=== PATIENT | male | born 1955 | race Caucasian/White ===

== ENCOUNTER 2020-06-07 22:23 | Inpatient (IN) | payer OTHER, MEDICARE ==
[~2020-06-07] VITALS: Ht 182.9 cm; Wt 113.5 kg
[2020-06-07] MEDS ORDERED: OXYMETAZOLINE 0.05% NASAL SPRAY 30ML BOTTLE. NS ONE (23:30)
--- NOTE | 2020-06-07 23:35 | PHYS DOC ---
Past Medical History Past Medical History: Hypertension Past Surgical History: Tonsillectomy Smoking Status: Never Smoker Alcohol Use: Rarely Drug Use: None General Adult EDM: Chief Complaint: NOSEBLEED HPI: HPI: Patient is a 64-year-old male presenting with nosebleed. Patient has been having persistent episodic nosebleeds for the last few days accompanied by episodes of hypertension. Patient denies of blood thinners. Reports was re cently seen up at [facility] for similar and was noted to have elevated blood pressure. Patient was started on blood pressure medication which he reports he has been compliant with. Review of Systems: Review of Systems: Constitutional: Denies fever or chills Eyes: Denies redness or eye pain HENT: Endorses epistasis, denies trauma Respiratory: Denies cough or shortness of breath Cardiovascular: Denies chest pain or palpitations GI: Denies abdominal pain, nausea, or vomiting : Denies dysuria or hematuria Musculoskeletal: Denies back pain or joint pain Integument: Denies rash or skin lesions Neurologic: Denies headache, focal weakness or sensory changes Complete systems were reviewed and found to be within normal limits, except as documented in this note. Heart Score: HEART Score for Chest Pain: HEART Score for Chest Pain Response (Comments) Value History Slighlty/Non-Suspicious 0 ECG Nonspecific Repolarizatio 1 Age > 65 2 Risk Factors 1 or 2 Risk Factors 1 Troponin >1-<3x Normal Limit 1 Total 5 Risk Factors: Risk Factors: DM, Current or recent (<one month) smoker, HTN, HLP, family history of CAD, obesity. Risk Scores: Score 0 - 3: 2.5% MACE over next 6 weeks - Discharge Home Score 4 - 6: 20.3% MACE over next 6 weeks - Admit for Clinical Observation Score 7 - 10: 72.7% MACE over next 6 weeks - Early Invasive Strategies Current Medications: Current Medications Medications (Trade) Dose Ordered Sig/Peyman Start Time Stop Time Status Last Admin Dose Admin Oxymetazoline HCl (Afrin) 2 spray 1X ONCE 06/07/20 23:30 06/07/20 23:31 DC Sodium Chloride 1,000 ml @ 1,000 mls/hr 1X ONCE 06/07/20 23:45 06/08/20 00:44 Allergies: Allergies: Allergies Coded Allergies Type Severity Reaction Last Updated Verified No Known Drug Allergies 06/07/20 No Physical Exam: PE: Constitutional: Well developed, well nourished, in moderate distress, non-toxic appearance HENT: Normocephalic, atraumatic, nares gross bloody discharge R>L, Eyes: PERRL, EOMI, conjunctiva normal, no discharge Neck: Normal range of motion, no tenderness, supple Lungs & Thorax: Bilateral breath sounds clear to auscultation, no wheezing Abdomen: Soft, no tenderness, umbilicus hernia present Skin: Warm, dry, no erythema, no rash Back: No tenderness, no CVA tenderness Extremities: No tenderness, ROM intact, no edema Neurologic: Alert and oriented X 3, normal motor function, normal sensory function, no focal deficits noted Psychologic: Affect normal, judgment normal Current Patient Data: Vital Signs: Vital Signs Date Time Temp Pulse Resp B/P (MAP) Pulse Ox O2 Delivery O2 Flow Rate FiO2 06/07/20 22:30 97.7 86 22 192/122 (145) 97 Room Air 97.7 EKG: EK06/07/2020 at 23:56 hrs. heart rate 137 bpm, atrial fibrillation with rapid ventricular response, QRS 92 ms, QT/QTc 320/485 ms 06/08/2020 at 00:47 hrs. Heart rate 70 bpm, atrial fibrillation, QRS 100 ms, QT/QTc 440/478 ms Course & Med Decision Making: Course & Med Decision Making Pertinent Lab studies reviewed. (See chart for details) Patient is a 64-year-old male presenting with persistent epistaxis. On arrival to the ED patient passed large dark blood clots from his nostrils where he briefly lost consciousness possibly due to vasovagal response. Nasal clamp and Afrin utilized with interval resolution of epistaxis. Patient has been intermittently hypertensive. Labetalol provided. Patient subsequently noted to have abnormal telemetry monitoring concerning for possible atrial fibrillation. EKG confirmed A. fib RVR. Labs obtained and posted to chart. Cardizem bolus provided with subsequent decrease in heart rate down into the 40s. Patient became diaphoretic at this time. Cardizem drip held for period of time until subsequent improvement of heart rate. Cardizem drip was eventually started. Laboratory data notes patient with repeat troponin slightly elevated. Patient requiring admission for further evaluation and treatment. Discussed with Dr. Curtis (hospitalist) who is in agreement with admission. Discussed findings and plan with patient, who acknowledges understanding and agreement. Dragon Disclaimer: Dragon Disclaimer: This electronic medical record was generated, in whole or in part, using a voice recognition dictation system. Departure Departure Impression: Primary Impression: Atrial fibrillation with rapid ventricular response Additional Impressions: Epistaxis Hypertension Qualified Codes: I10 - Essential (primary) hypertension Syncope Qualified Codes: R55 - Syncope and collapse Disposition: ADMITTED INPATIENT Condition: STABLE Referrals: ADWOA POLANCO MD (PCP) Justicifation of Admission Dx: Justifications for Admission: Justification of Admission Dx: Yes Comments: Afib RVR, Epistaxis, Hypertension, Syncope Critical Care Time Critical care time was 30 minutes which includes time at bedside, spent in discussion of patient's care with specialists and/or family members, with interpretation of laboratory and/or radiological studies and is exclusive of procedures. AMANDA JEAN DO Jun 07, 2020 23:35
[2020-06-07 23:42] LABS: BASO # 0.1 x10^3/uL (0.0-0.2); BASO % 1 % (0-3); EOS # 0.1 x10^3/uL (0.0-0.7); EOS % 1 % (0-3); HEMATOCRIT 30.4 % (39.0-53.0); HEMOGLOBIN 10.4 g/dL (13.0-17.5); LYMPH # 2.9 x10^3/uL (1.0-4.8); LYMPH % 30 % (24-48); MEAN CORPUSCULAR HEMOGLOBIN 33 pg (25-35); MEAN CORPUSCULAR HGB CONC 34 g/dL (31-37); MEAN CORPUSCULAR VOLUME 98 fL (79-100); MONO # 1.2 x10^3/uL (0.0-1.1); MONO % 12 % (0-9); NEUT # 5.5 x10^3/uL (1.8-7.7); NEUT % 55 % (31-73); PLATELET COUNT 252 x10^3/uL (140-400); WHITE BLOOD COUNT 9.9 x10^3/uL (4.0-11.0)
[2020-06-07] MEDS ORDERED: LABETALOL 20 MG/4 ML DISP.SYRIN. IVP ONE (23:45)
[2020-06-07] MEDS ORDERED: IV NORMAL SALINE 1000ML BAG 1,000 ML IV ONE (23:45)
[2020-06-07 23:53] LABS: PROTHROMBIN TIME PATIENT 14.5 SEC (11.7-14.0)
[2020-06-08 00:15] LABS: CALCIUM 8.3 mg/dL (8.5-10.1); CREATININE 1.1 mg/dL (0.7-1.3); POTASSIUM 3.5 mmol/L (3.5-5.1)
[2020-06-08 00:20] LABS: ALBUMIN 3.1 g/dL (3.4-5.0); ALBUMIN/GLOBULIN RATIO 0.6 (1.0-1.7); MAGNESIUM 2.1 mg/dL (1.8-2.4); TOTAL BILIRUBIN 0.5 mg/dL (0.2-1.0); TOTAL PROTEIN 8.1 g/dL (6.4-8.2)
[2020-06-08] MEDS ORDERED: dilTIAZem IV PUSH 25 MG/5 ML VIAL IVP ONE (00:30)
[2020-06-08] MEDS: DILTIAZEM HCL 125 MG in IV NORMAL SALINE 100ML 100 ML IV ONE ×2 (00:35→01:47)
[2020-06-08] MEDS ORDERED: ATROPINE 1 MG/10 ML DISP.SYRINGE. ONE (00:44)
[2020-06-08] MEDS ORDERED: ONDANSETRON PF 4 MG/2 ML VIAL. IV PRN ×2 (01:00→08:00)
--- NOTE | 2020-06-08 07:28 | EKG ---
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
--- NOTE | 2020-06-08 07:29 | EKG ---
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
--- NOTE | 2020-06-08 08:02 | PDOC1 ---
History and Physical Date of Admission Date of Admission DATE: 06/08/20 TIME: 08:01 Identification/Chief Complaint Chief Complaint Epistaxis Source Source: Patient History of Present Illness History of Present Illness Mr Jackson is a 64 yo male w/ PMHx HTN p/w persistent epistaxis since 2100 on 06/07/2020. He was accompanied by his . On arrival to the ED patient passed large dark blood clots from his nostrils where he briefly lost consciousness. He was responsive with nasal clamping as well as Afrin. Pressure was elevated and required IV labetalol. On initial telemetry he was noted in likely atrial fibrillation which was confirmed on EKG showing A. fib with RVR. After initial Cardizem bolus his heart rate dropped into the 40s, it has been slowly uptitrated since then. He has been having intermittent nose bleeds since 06/01/2020 and on 06/02/2020 went to [facility] with the bleeding stopped in ED and he was started on lisinopril and Norvasc. He is able to stop nosebleeds on his own until last night. He does note he gets them frequently during the winter over the course of his life. Has no family history of bleeding disorders no hemophilia no von Willebrand deficiency. He was supposed to see Dr. Rosado ENT today at 2PM. His brother is a local physician also has AFIB with a successful ablation and his father had CVA. Labs significant for troponin of 0.117, INR 1.2, albumin 3.1, magnesium 2.1, K3.5, NA 139, BUN 32, CR 1.1, glucose 144, WBC 9.9, Hb 10.4, platelets 252. Initial EKG with HR 137 bpm, atrial fibrillation with rapid ventricular response, QRS 92 ms, QT/QTc 320/485 ms Repeat EKG with HR 70 bpm, atrial fibrillation, QRS 100 ms, QT/QTc 440/478 m Past Medical History Cardiovascular: HTN Past Surgical History Past Surgical History: Tonsillectomy Family History Family History: Heart Disease, High Cholestrol, Other (Afib - brother) Family History: Parent (Stroke in father) Social History Smoke: No ALCOHOL: rare Drugs: None Current Problem List Problem List Problems Medical Problems: (1) Atrial fibrillation with rapid ventricular response Status: Acute (2) Epistaxis Status: Acute (3) Hypertension Status: Acute (4) Syncope Status: Acute Current Medications Current Medications Current Medications Oxymetazoline HCl (Afrin) 2 spray 1X ONCE NS Last administered on 06/07/20at 23:30; Start 06/07/20 at 23:30; Stop 06/07/20 at 23:31; Status DC Sodium Chloride 1,000 ml @ 1,000 mls/hr 1X ONCE IV Last administered on 06/07/20at 00:45; Start 06/07/20 at 23:45; Stop 06/08/20 at 00:44; Status DC Labetalol HCl (Normodyne Iv Push) 10 mg 1X ONCE IVP Last administered on 06/07/20at 23:59; Start 06/07/20 at 23:45; Stop 06/07/20 at 23:46; Status DC Lorazepam (Ativan Inj) 0.5 mg 1X ONCE IVP ; Start 06/08/20 at 00:30; Stop 06/08/20 at 00:31; Status DC Diltiazem HCl (Cardizem Iv Push) 20 mg 1X ONCE IVP Last administered on 06/08/20at 00:34; Start 06/08/20 at 00:30; Stop 06/08/20 at 00:31; Status DC Diltiazem HCl 125 mg/Sodium Chloride 125 ml @ 5 mls/hr 1X ONCE IV Last administered on 06/08/20at 01:47; Start 06/08/20 at 00:30; Stop 06/09/20 at 01:29 Atropine Sulfate (ATROPINE 1mg SYRINGE) 1 mg STK-MED ONCE .ROUTE ; Start 06/08/20 at 00:44; Stop 06/08/20 at 00:44; Status DC Ondansetron HCl (Zofran) 4 mg PRN Q8HRS PRN IV NAUSEA/VOMITING 1ST CHOICE; Start 06/08/20 at 01:00; Stop 06/08/20 at 08:00; Status DC Ondansetron HCl (Zofran) 4 mg PRN Q4HRS PRN IV NAUSEA/VOMITING 1ST CHOICE; Start 06/08/20 at 08:00 Allergies Allergies: Coded Allergies: No Known Drug Allergies (Unverified , 06/07/20) ROS General: YES: Fatigue, Malaise; No: Chills, Night Sweats, Appetite, Other PSYCHOLOGICAL ROS: No: Anxiety, Behavioral Disorder, Concentration difficultie, Decreased libido, Depression, Disorientation, Hallucinations, Hostility, Irritablity, Memory difficulties, Mood Swings, Obsessive thoughts, Physical abuse, Sexual abuse, Sleep disturbances, Suicidal ideation, Other Eyes: No Blurry vision, No Decreased vision, No Double vision, No Dry eyes, No Excessive tearing, No Eye Pain, No Itchy Eyes, No Loss of vision, No Photophobia, No Scotomata, No Uses contacts, No Uses glasses, No Other HEENT: YES: Epistaxis; No: Heacaches, Visual Changes, Hearing change, Nasal congestion, Nasal discharge, Oral lesions, Sinus pain, Sore Throat, Sneezing, Snoring, Tinnitus, Vertigo, Vocal changes, Other ALLERGY AND IMMUNOLOGY: No: Hives, Insect Bite Sensitivity, Itchy/Watery Eyes, Nasal Congestion, Post Nasal Drip, Seasonal Allergies, Other Hematological and Lymphatic: No: Bleeding Problems, Blood Clots, Blood Transfusions, Brusing, Night Sweats, Pallor, Swollen Lymph Nodes, Other ENDOCRINE: No: Breast Changes, Galactorrhea, Hair Pattern Changes, Hot Flashes, Malaise/lethargy, Mood Swings, Palpitations, Polydipsia/polyuria, Skin Changes, Temperature Intolerance, Unexpected Weight Changes, Other Breast: No New/Changing Breast Lumps, No Nipple changes, No Nipple discharge, No Other Respiratory: No: Cough, Hemoptysis, Orthopnea, Pleuritic Pain, Shortness of breath, SOB with excertion, Sputum Changes, Stridor, Tachypnea, Wheezing, Other Cardiovascular: yes Palpitations; No Chest Pain, No Orthopnea, No Paroxysmal Noc. Dyspnea, No Edema, No Lt Headedness, No Other Gastrointestinal: No Nausea, No Vomiting, No Abdominal Pain, No Diarrhea, No Constipation, No Melena, No Hematochezia, No Other Genitourinary: No Dysuria, No Frequency, No Incontinence, No Hematuria, No Retention, No Discharge, No Urgency, No Pain, No Flank Pain, No Other, No , No , No , No , No , No , No Musculoskeletal: No Gait Disturbance, No Joint Pain, No Joint Stiffness, No Joint Swelling, No Muscle Pain, No Muscular Weakness, No Pain In:, No Swelling In:, No Other Neurological: No Behavorial Changes, No Bowel/Bladder ControlChng, No Confusion, No Dizziness, No Gait Disturbance, No Headaches, No Impaired Coord/balance, No Memory Loss, No Numbness/Tingling, No Seizures, No Speech Problems, No Tremors, No Visual Changes, No Weakness, No Other Skin: No Dry Skin, No Eczema, No Hair Changes, No Lumps, No Mole Changes, No Mottling, No Nail Changes, No Pruritus, No Rash, No Skin Lesion Changes, No Other, No Acne Physical Exam General: Alert, Oriented X3, Cooperative, No acute distress HEENT: Atraumatic, PERRLA, EOMI, Mucous membr. moist/pink, Other (dried blood in right nare) Heart: irregularly irregular Abdomen: Normal bowel sounds, Soft, No tenderness, No hepatosplenomegaly, No masses Rectal Exam: not examined Extremities: No clubbing, No cyanosis, No edema, Normal pulses, No tenderness/swelling Skin: No rashes, No breakdown, No significant lesion Neuro: Normal gait, Normal speech, Strength at 5/5 X4 ext, Normal tone, Sensation intact, Cranial nerves 3-12 NL, Reflexes 2+ Psych/Mental Status: Mental status NL, Mood NL Vitals Vitals Vital Signs Date Time Temp Pulse Resp B/P (MAP) Pulse Ox O2 Delivery O2 Flow Rate FiO2 06/08/20 07:16 127 94 06/08/20 00:34 160/85 06/07/20 23:04 18 06/07/20 22:30 97.7 Room Air 97.7 Labs Labs Laboratory Tests Test 06/07/20 23:35 06/08/20 00:00 06/08/20 04:11 White Blood Count 9.9 x10^3/uL (4.0-11.0) Red Blood Count 3.10 x10^6/uL (4.30-5.70) Hemoglobin 10.4 g/dL (13.0-17.5) Hematocrit 30.4 % (39.0-53.0) Mean Corpuscular Volume 98 fL (79-100) Mean Corpuscular Hemoglobin 33 pg (25-35) Mean Corpuscular Hemoglobin Concent 34 g/dL (31-37) Red Cell Distribution Width 14.0 % (11.5-14.5) Platelet Count 252 x10^3/uL (140-400) Neutrophils (%) (Auto) 55 % (31-73) Lymphocytes (%) (Auto) 30 % (24-48) Monocytes (%) (Auto) 12 % (0-9) Eosinophils (%) (Auto) 1 % (0-3) Basophils (%) (Auto) 1 % (0-3) Neutrophils # (Auto) 5.5 x10^3/uL (1.8-7.7) Lymphocytes # (Auto) 2.9 x10^3/uL (1.0-4.8) Monocytes # (Auto) 1.2 x10^3/uL (0.0-1.1) Eosinophils # (Auto) 0.1 x10^3/uL (0.0-0.7) Basophils # (Auto) 0.1 x10^3/uL (0.0-0.2) Prothrombin Time 14.5 SEC (11.7-14.0) Prothromb Time International Ratio 1.2 (0.8-1.1) Activated Partial Thromboplast Time 27 SEC (24-38) Sodium Level 139 mmol/L (136-145) Potassium Level 3.5 mmol/L (3.5-5.1) Chloride Level 108 mmol/L (98-107) Carbon Dioxide Level 23 mmol/L (21-32) Anion Gap 8 (6-14) Blood Urea Nitrogen 32 mg/dL (8-26) Creatinine 1.1 mg/dL (0.7-1.3) Estimated GFR (Cockcroft-Gault) 67.0 BUN/Creatinine Ratio 29 (6-20) Glucose Level 144 mg/dL (70-99) Calcium Level 8.3 mg/dL (8.5-10.1) Magnesium Level 2.1 mg/dL (1.8-2.4) Total Bilirubin 0.5 mg/dL (0.2-1.0) Aspartate Amino Transf (AST/SGOT) 23 U/L (15-37) Alanine Aminotransferase (ALT/SGPT) 33 U/L (16-63) Alkaline Phosphatase 60 U/L (46-116) Creatine Kinase 161 U/L (39-308) Creatine Kinase MB (Mass) 2.6 ng/mL (0.0-3.6) Creatine Kinase MB Relative Index 1.6 % (0-4) Troponin I Quantitative < 0.017 ng/mL (0.000-0.055) 0.117 ng/mL (0.000-0.055) Total Protein 8.1 g/dL (6.4-8.2) Albumin 3.1 g/dL (3.4-5.0) Albumin/Globulin Ratio 0.6 (1.0-1.7) Laboratory Tests Test 06/07/20 23:35 06/08/20 00:00 06/08/20 04:11 White Blood Count 9.9 x10^3/uL (4.0-11.0) Red Blood Count 3.10 x10^6/uL (4.30-5.70) Hemoglobin 10.4 g/dL (13.0-17.5) Hematocrit 30.4 % (39.0-53.0) Mean Corpuscular Volume 98 fL (79-100) Mean Corpuscular Hemoglobin 33 pg (25-35) Mean Corpuscular Hemoglobin Concent 34 g/dL (31-37) Red Cell Distribution Width 14.0 % (11.5-14.5) Platelet Count 252 x10^3/uL (140-400) Neutrophils (%) (Auto) 55 % (31-73) Lymphocytes (%) (Auto) 30 % (24-48) Monocytes (%) (Auto) 12 % (0-9) Eosinophils (%) (Auto) 1 % (0-3) Basophils (%) (Auto) 1 % (0-3) Neutrophils # (Auto) 5.5 x10^3/uL (1.8-7.7) Lymphocytes # (Auto) 2.9 x10^3/uL (1.0-4.8) Monocytes # (Auto) 1.2 x10^3/uL (0.0-1.1) Eosinophils # (Auto) 0.1 x10^3/uL (0.0-0.7) Basophils # (Auto) 0.1 x10^3/uL (0.0-0.2) Prothrombin Time 14.5 SEC (11.7-14.0) Prothromb Time International Ratio 1.2 (0.8-1.1) Activated Partial Thromboplast Time 27 SEC (24-38) Sodium Level 139 mmol/L (136-145) Potassium Level 3.5 mmol/L (3.5-5.1) Chloride Level 108 mmol/L (98-107) Carbon Dioxide Level 23 mmol/L (21-32) Anion Gap 8 (6-14) Blood Urea Nitrogen 32 mg/dL (8-26) Creatinine 1.1 mg/dL (0.7-1.3) Estimated GFR (Cockcroft-Gault) 67.0 BUN/Creatinine Ratio 29 (6-20) Glucose Level 144 mg/dL (70-99) Calcium Level 8.3 mg/dL (8.5-10.1) Magnesium Level 2.1 mg/dL (1.8-2.4) Total Bilirubin 0.5 mg/dL (0.2-1.0) Aspartate Amino Transf (AST/SGOT) 23 U/L (15-37) Alanine Aminotransferase (ALT/SGPT) 33 U/L (16-63) Alkaline Phosphatase 60 U/L (46-116) Creatine Kinase 161 U/L (39-308) Creatine Kinase MB (Mass) 2.6 ng/mL (0.0-3.6) Creatine Kinase MB Relative Index 1.6 % (0-4) Troponin I Quantitative < 0.017 ng/mL (0.000-0.055) 0.117 ng/mL (0.000-0.055) Total Protein 8.1 g/dL (6.4-8.2) Albumin 3.1 g/dL (3.4-5.0) Albumin/Globulin Ratio 0.6 (1.0-1.7) VTE Prophylaxis Ordered VTE Prophylaxis Devices: No VTE Pharmacological Prophylaxi: No Assessment/Plan Assessment/Plan A/P: AFIB RVR - cardizem gtt. Consulted cardiology. [id number] of 2, ASA likely more appropriate than NOAC given his bleeding recently Anemia - acute blood lose related Acute Epistaxis - 25 minutes bleeding, no history of hemophilia or bleeding disorders in the family. Could be acquired von Willebrand factor deficiency. HTN urgency - cont meds, lisinopril Obesity with possible AL Hyperglycemia - will check A1c Prerenal azotemia - hydrate NSTEMI - will trend troponins FEN - Cardiac diet PPX - ambulatory FULL CODE Dispo - inpatient Justifications for Admission Other Justification ROXANA XIONG MD Jun 08, 2020 08:02
[2020-06-08 08:35] VITALS: BP 155/86
[2020-06-08 09:05] LABS: AMPHETAMINE/METHAMPHETAMINE NEG (NEG); BARBITURATES NEG (NEG); BENZODIAZEPINES NEG (NEG); CANNABINOIDS NEG (NEG); COCAINE NEG (NEG); METHADONE NEG (NEG); OPIATES NEG (NEG); PHENCYCLIDINE NEG (NEG)
--- NOTE | 2020-06-08 09:30 | PDOC2 ---
DEEPTI GUTIERRES COMMUTATOR OPERATOR 06/08/20 0930: CARDIAC CONSULT DATE OF CONSULT Date of Consult DATE: 06/08/20 TIME: 1100 REASON FOR CONSULT Reason for Consult: AFIB RVR REFERRING PHYSICIAN Referring Physician: Michael SOURCE Source: Chart review, Patient HISTORY OF PRESENT ILLNESS HISTORY OF PRESENT ILLNESS This is a pleasant 64 yo male admitted for complains of dizziness and nose bleed. Report that he has been having nose bleed since . He has been packing and pinching his nose to stop it. He was suppose to see his ENT today at 2PM but upon admission he was noted with AFIB RVR. This is new for him and really did not feel the palpitations until he got in the hospital. Further more he was [facility] prior due to nose bleed and was told that his BP was very high and was given lisinopril and later his PCP added norvasc as an outpt as his BP was still high. Has some dizziness and sometimes a little SOA but not significantly different from his baseline. He does not watch what he eats and has been having insomnia and snores at night and has not been tested for sleep apnea. He has been gaining wt somewhat due to his diet. Denies any CAD, VTE and no prior injury, falls and no hx of GI bleed, PUD, nor any hx of CVA. He has been told of HTN and needed to be medicated but has not heed that till recently. His br other has AFIB and his father had CVA. No recent fvever or chills. Yesterday he had epistaxis that lasted for about 35 min. He also started taking lasix due to leg edema. PAST MEDICAL HISTORY Cardiovascular: HTN Pulmonary: No pertinent hx CENTRAL NERVOUS SYSTEM: Other (No pertinent history) GI: No pertinent hx Heme/Onc: No pertinent hx Hepatobiliary: No pertinent hx Psych: Anxiety, Depression (has not taken meds for a while) Musculoskeletal: Osteoarthritis Rheumatologic: No pertinent hx Infectious disease: No pertinent hx ENT: Other (epistaxis) Renal/: No pertinent hx Endocrine: No pertinent hx Dermatology: No pertinent hx PAST SURGICAL HISTORY Past Surgical History: Tonsillectomy FAMILY HISTORY Family History: Other (brother has AFIB, father has CVA) SOCIAL HISTORY Smoke: No ALCOHOL: occassional Drugs: None Lives: with Family CURRENT MEDICATIONS CURRENT MEDICATIONS Current Medications Medications (Trade) Dose Ordered Sig/Peyman Route PRN Reason Start Time Stop Time Status Last Admin Dose Admin Oxymetazoline HCl (Afrin) 2 spray 1X ONCE NS 06/07/20 23:30 06/07/20 23:31 DC 06/07/20 23:30 Sodium Chloride 1,000 ml @ 1,000 mls/hr 1X ONCE IV 06/07/20 23:45 06/08/20 00:44 DC 06/07/20 00:45 Labetalol HCl (Normodyne Iv Push) 10 mg 1X ONCE IVP 06/07/20 23:45 06/07/20 23:46 DC 06/07/20 23:59 Diltiazem HCl (Cardizem Iv Push) 20 mg 1X ONCE IVP 06/08/20 00:30 06/08/20 00:31 DC 06/08/20 00:34 Diltiazem HCl 125 mg/Sodium Chloride 125 ml @ 5 mls/hr 1X ONCE IV 06/08/20 00:30 06/09/20 01:29 06/08/20 01:47 ALLERGIES ALLERGIES: Coded Allergies: No Known Drug Allergies (Unverified , 06/07/20) ROS Review of System 14 point ROS evaluated with pertinent positives noted per HPI PHYSICAL EXAM General: Alert, Oriented X3, Cooperative, No acute distress HEENT: Atraumatic, Mucous membr. moist/pink Lungs: Clear to auscultation, Normal air movement Heart: Regular rate (SR), Normal S1, Normal S2 Extremities: No cyanosis, Other (1+ edema) Skin: No breakdown, No significant lesion Neuro: Normal speech, Sensation intact Psych/Mental Status: Mental status NL, Mood NL MUSCULOSKELETAL: Osteoarthritic changes both hands VITALS/I&O VITALS/I&O: Vital Signs Date Time Temp Pulse Resp B/P (MAP) Pulse Ox O2 Delivery O2 Flow Rate FiO2 06/08/20 08:35 97.9 97 22 155/86 (109) 99 Room Air 97.9 l I & O 06/07/20 06/07/20 06/08/20 15:00 23:00 07:00 Intake Total 1000 ml Balance 1000 ml LABS Lab: Laboratory Tests Test 06/07/20 23:35 06/08/20 00:00 06/08/20 04:11 06/08/20 06:52 White Blood Count 9.9 x10^3/uL (4.0-11.0) Red Blood Count 3.10 x10^6/uL (4.30-5.70) L Hemoglobin 10.4 g/dL (13.0-17.5) L Hematocrit 30.4 % (39.0-53.0) L Mean Corpuscular Volume 98 fL (79-100) Mean Corpuscular Hemoglobin 33 pg (25-35) Mean Corpuscular Hemoglobin Concent 34 g/dL (31-37) Red Cell Distribution Width 14.0 % (11.5-14.5) Platelet Count 252 x10^3/uL (140-400) Neutrophils (%) (Auto) 55 % (31-73) Lymphocytes (%) (Auto) 30 % (24-48) Monocytes (%) (Auto) 12 % (0-9) H Eosinophils (%) (Auto) 1 % (0-3) Basophils (%) (Auto) 1 % (0-3) Neutrophils # (Auto) 5.5 x10^3/uL (1.8-7.7) Lymphocytes # (Auto) 2.9 x10^3/uL (1.0-4.8) Monocytes # (Auto) 1.2 x10^3/uL (0.0-1.1) H Eosinophils # (Auto) 0.1 x10^3/uL (0.0-0.7) Basophils # (Auto) 0.1 x10^3/uL (0.0-0.2) Prothrombin Time 14.5 SEC (11.7-14.0) H Prothrombin Time INR 1.2 (0.8-1.1) H Activated Partial Thromboplast Time 27 SEC (24-38) Sodium Level 139 mmol/L (136-145) Potassium Level 3.5 mmol/L (3.5-5.1) Chloride Level 108 mmol/L (98-107) H Carbon Dioxide Level 23 mmol/L (21-32) Anion Gap 8 (6-14) Blood Urea Nitrogen 32 mg/dL (8-26) H Creatinine 1.1 mg/dL (0.7-1.3) Estimated GFR (Cockcroft-Gault) 67.0 BUN/Creatinine Ratio 29 (6-20) H Glucose Level 144 mg/dL (70-99) H Calcium Level 8.3 mg/dL (8.5-10.1) L Magnesium Level 2.1 mg/dL (1.8-2.4) Total Bilirubin 0.5 mg/dL (0.2-1.0) Aspartate Amino Transferase (AST) 23 U/L (15-37) Alanine Aminotransferase (ALT) 33 U/L (16-63) Alkaline Phosphatase 60 U/L (46-116) Creatine Kinase 161 U/L (39-308) Creatine Kinase MB (Mass) 2.6 ng/mL (0.0-3.6) Creatine Kinase MB Relative Index 1.6 % (0-4) Troponin I Quantitative < 0.017 ng/mL (0.000-0.055) 0.117 ng/mL (0.000-0.055) 0.301 ng/mL (0.000-0.055) Total Protein 8.1 g/dL (6.4-8.2) Albumin 3.1 g/dL (3.4-5.0) L Albumin/Globulin Ratio 0.6 (1.0-1.7) L Thyroid Stimulating Hormone (TSH) 1.460 uIU/mL (0.358-3.74) Test 06/08/20 08:40 Urine Opiates Screen Neg (NEG) Urine Methadone Screen Neg (NEG) Urine Barbiturates Neg (NEG) Urine Phencyclidine Screen Neg (NEG) Urine Amphetamine/Methamphetamine Neg (NEG) Urine Benzodiazepines Screen Neg (NEG) Urine Cocaine Screen Neg (NEG) Urine Cannabinoids Screen Neg (NEG) Urine Ethyl Alcohol Neg (NEG) Laboratory Tests 06/07/20 23:35 Laboratory Tests 06/08/20 00:00 ASSESSMENT/PLAN ASSESSMENT/PLAN 1. AFIB RVR: new now SR 2. LVH 3. HTN urgency: BP better 4. Epistaxis; none further so far 5. Obesity with possible AL 6. Hyperglycemia 7. Prerenal azotemia 8. NSTEMI; likely type 2 with RVR episodes. peaked trop at 0.3 9. Suspect diastolic CHF; compensated Recommendations 1. On cardizem drip and converted to SR with digoxin. will stop cardizem after giving PO lopressor. repeat EKG 2. Will titrate BP med per response. Continue lisinopril and stop norvasc. Going home with metoprolol 50 mg PO BID 3. TTE, lipids and A1C 4. MCOT and MPI as an outpt. 5. CXR pa and lat. AL w/u referral 6. [id number] score 2. Will reeval after noting AFIB burden for now due to epistaxis issue will place on ECASA 81 mg. Discussed not to take any other NSAIDs. 7. Follow up with ENT as soon as DCd 8. Follow up in office jul 06 9AM. Anticipate DC this afternoon if no significant changes to TTE GABY VALLE MD 06/08/202010: CARDIAC CONSULT ASSESSMENT/PLAN ASSESSMENT/PLAN Patient seen and examined. Agree with PLASTICS ENGINEERING TEACHER's assessment and plan. New onset AF back in SR Agree with stopping CZM gtt and starting oral BB Plan for event monitor as outpatient to assess AF burden and evaluate risks/benefits with jail AC Follow up with ENT for any reversible causes for nosebleeds BP better controlled Slight trop elevation prob demand ischemia Plan ischemic evaluation as outpatient Thank you for your consultation DEEPTI GUTIERRES APRN Jun 08, 2020 09:30 GABY VALLE MD Jun 08, 2020 20:11
[2020-06-08] MEDS ORDERED: LISI-334 PO (10:26)
[2020-06-08] MEDS ORDERED: FURO20TA3 PO (10:26)
[2020-06-08] MEDS ORDERED: AMLO5TAB10 PO (10:26)
[2020-06-08 10:33] VITALS: BP 123/85
[2020-06-08] MEDS ORDERED: DILTIAZEM HCL 125 MG in IV NORMAL SALINE 100ML 100 ML IV PRN (10:45)
[2020-06-08] MEDS ORDERED: DIGOXIN IV 500 MCG/2 ML AMPUL. IV ONE (11:00)
[2020-06-08 11:02] LABS: CREATININE 0.9 mg/dL (0.7-1.3); GFR 84.4; POTASSIUM 3.9 mmol/L (3.5-5.1)
[2020-06-08 11:26] LABS: CHOLESTEROL/HDL RATIO 3.6
[2020-06-08] MEDS ORDERED: METOPROLOL TART IMMED RELEASE 25 MG TABLET. PO ONE (11:30)
[2020-06-08] MEDS ORDERED: LISINOPRIL 20 MG TABLET PO SCH (13:00)
[2020-06-08] MEDS ORDERED: amLODIPine BESYLATE 5 MG TABLET PO SCH (13:00)
[2020-06-08] MEDS ORDERED: FUROSEMIDE 20 MG TABLET PO SCH (13:00)
--- NOTE | 2020-06-08 14:24 | CARD ---
MR#: [id number] Date of Study: 06/08/2020 Ordering Physician: DEEPTI GUTIERRES, Referring Physician: DEEPTI GUTIERRES, Tech: Sariah Longoria [facility] APPROVED REPORT EXAM: Two-dimensional and M-mode echocardiogram with Doppler and color Doppler. Other Information Quality : Good INDICATION Atrial Fibrillation Five second pause in 1st subcostal image 2D DIMENSIONS RVDd3.3 (2.9-3.5cm)Left Atrium(2D)4.6 (1.6-4.0cm) IVSd1.4 (0.7-1.1cm)Aortic Root(2D)3.1 (2.0-3.7cm) LVDd4.1 (3.9-5.9cm)LVOT Diameter2.1 (1.8-2.4cm) PWd1.2 (0.7-1.1cm)LVDs3.1 (2.5-4.0cm) FS (%) 25.3 %SV37.8 ml LVEF(%)55.0 (>50%) Aortic Valve AoV Peak Andrea.162.8cm/sAoV VTI26.6cm AO Peak GR.10.6mmHgLVOT Peak Andrea.160.1cm/s AO Mean GR.6mmHgAVA (VMAX)3.46cm2 EVANGELISTA (VTI)4.00cm2 Mitral Valve MV E Ruvqijgj58.2cm/sMV DECEL BPFD918va MV A Lswsuinz71.7cm/sE/A Ratio0.7 Tricuspid Valve TR P. Mqhwfyej247nm/sRAP IIWGANNQ5tePj TR Peak Gr.06eySbPKIW64uwWh Pulmonary Vein S1 Kqzbsvhs37.2cm/sD2 Wclnslhm51.0cm/s LEFT VENTRICLE The left ventricle is normal size. There is mild concentric left ventricular hypertrophy. The left ve ntricular systolic function is normal and the ejection fraction is within normal range. The Ejection Fraction is 55-60%. There is normal LV segmental wall motion. Transmitral Doppler flow pattern is Gra de I-abnormal relaxation pattern. RIGHT VENTRICLE The right ventricle is normal size. The right ventricular systolic function is normal. ATRIA The left atrium is mildly dilated. The right atrium size is normal. The interatrial septum is intact with no evidence for an atrial septal defect or patent foramen ovale as noted on 2-D or Doppler imagi ng. AORTIC VALVE The aortic valve is calcified but opens well. Doppler and Color Flow revealed no significant aortic r egurgitation. There is no significant aortic valvular stenosis. MITRAL VALVE The mitral valve is calcified but opens well. There is no evidence of mitral valve prolapse. There is no mitral valve stenosis. Doppler and Color-flow revealed trace to mild mitral regurgitation. TRICUSPID VALVE The tricuspid valve is normal in structure and function. Doppler and Color Flow revealed trace tricus pid regurgitation. The PA pressure was estimated at 23 mmHg. There is no tricuspid valve stenosis. PULMONIC VALVE The pulmonic valve is not well visualized. Doppler and Color Flow revealed trace pulmonic valvular re gurgitation. There is no pulmonic valvular stenosis. GREAT VESSELS The aortic root is normal in size. The ascending aorta is moderately dilated at 4.1 cm. The IVC is no rmal in size and collapses >50% with inspiration. PERICARDIAL EFFUSION There is no evidence of significant pericardial effusion. Critical Notification Critical Value: No <Conclusion> The left ventricle is normal size. The left ventricular systolic function is normal and the ejection fraction is within normal range. The Ejection Fraction is 55-60%. There is mild concentric left ventricular hypertrophy. Doppler and Color Flow revealed no significant aortic regurgitation. There is no significant aortic valvular stenosis. Doppler and Color-flow revealed trace to mild mitral regurgitation. Doppler and Color Flow revealed trace tricuspid regurgitation. The PA pressure was estimated at 23 mmHg. The ascending aorta is moderately dilated at 4.1 cm. Signed by : David Becerril MD Electronically Approved : 06/08/2020 14:24:17
[2020-06-08 15:26] VITALS: BP 182/98
--- NOTE | 2020-06-08 15:56 | RAD ---
CHEST PA LATERAL INDICATION: NSTEMI / Spl. Instructions: / History: . COMPARISON STUDY: None. FINDINGS: Lungs: Normal lung volume. No pulmonary mass or consolidation. The tracheobronchial tree and hilar structures are normal. Pleura: No pleural effusion or pneumothorax. Heart and Mediastinum: Cardiomegaly. Atherosclerotic thoracic aorta. Bones and Soft Tissues: Degenerative changes of the spine. IMPRESSION: No focal airspace disease. Electronically signed by: Jameson Portillo MD (06/08/2020 3:52 PM) [facility] CENTERMinda
[2020-06-08] MEDS ORDERED: METO50TA6 PO (16:06)
[2020-06-08] MEDS ORDERED: OXYM-27 NS (16:06)
[2020-06-08] MEDS ORDERED: ASPI-886 PO (16:06)
--- NOTE | 2020-06-08 16:10 | EKG ---
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
[2020-06-08 17:30] VITALS: BP 140/80
[2020-06-08] MEDS ORDERED: METOPROLOL TART IMMED RELEASE 50 MG TABLET. PO ONE (17:30)
--- NOTE | 2020-06-08 17:32 | NUR ---
Discharged patient to home. discharge instruction given. PIV and heart monitor removed. Escorted patient off unit per patient ambulating into a private vehicle.
[2020-06-08] MEDS ORDERED: METOPROLOL TART IMMED RELEASE 50 MG TABLET. PO SCH (21:00)
[2020-06-09 03:09] LABS: HEMOGLOBIN A1C 5.3 % (4.8-5.6)
[2020-06-09] MEDS ORDERED: ASPIRIN ENTERIC COATED 81 MG TABLET.DR. PO SCH (08:00)
[2020-06-09] MEDS ORDERED: LISINOPRIL 20 MG TABLET PO SCH (09:00)
[2020-06-09] MEDS ORDERED: FUROSEMIDE 20 MG TABLET PO SCH (09:00)
[2020-06-09] MEDS ORDERED: amLODIPine BESYLATE 5 MG TABLET PO SCH (09:00)
== END 2020-06-08 17:37 | disposition home or self-care (01) | DRG 282 ==
LOC: ER 22:23 → ED HOLD 06-08 00:49 → 2 NORTH 06-08 04:10
PROVIDERS: ADMIT Internal Medicine; ATTEND Internal Medicine
DX: I48.91 Unspecified atrial fibrillation (principal); I21.A1 Myocardial infarction type 2; I10 Essential (primary) hypertension; I16.0 Hypertensive urgency; R73.9 Hyperglycemia, unspecified; M19.90 Unspecified osteoarthritis, unspecified site; F41.9 Anxiety disorder, unspecified; F32.9 Major depressive disorder, single episode, unspecified; E66.9 Obesity, unspecified; R04.0 Epistaxis; G47.00 Insomnia, unspecified; Z82.3 Family history of stroke
CPT/HCPCS: 36415; 71046; 80048; 80053; 80061; 80307; 82553; 83036; 83735; 84443; 84484; 85025; 85246; 85610; 85730; 93005; 93306; J1160; J3490; J7030; G0378

== ENCOUNTER 2020-06-10 16:21 | Emergency (ER) | payer OTHER, MEDICARE ==
[~2020-06-10] VITALS: Ht 182.9 cm; Wt 112.2 kg
[~2020-06-10 16:21] MED LIST: AMLO5TAB10 PO; ASPI-886 PO; FURO20TA3 PO; LISI-334 PO; METO50TA6 PO; OXYM-27 NS
--- NOTE | 2020-06-10 16:45 | PHYS DOC ---
Past Medical History Past Medical History: Hypertension Past Surgical History: Tonsillectomy Smoking Status: Never Smoker Alcohol Use: Rarely Drug Use: None General Adult EDM: Chief Complaint: NOSEBLEED HPI: HPI: Patient is a 64-year-old male presenting with recurrent epistaxis that started 1530 hrs today. Patient presented to the ED early Saturday morning with the same recurrent epistasis but also lost consciousness and had an episode of A. fib with RVR but was soon stabilized. Patient's blood pressures at home this past day have been in the 140/80s but today presenting to the ED his blood pressures was 170/90. Patient states this is his first nosebleed since his previous stay. Review of Systems: Review of Systems: Constitutional: Denies fever or chills Eyes: Denies redness or eye pain HENT: Endorses nasal congestion and epistaxis Respiratory: Denies cough or shortness of breath Cardiovascular: Denies chest pain or palpitations GI: Denies abdominal pain, nausea, or vomiting : Denies dysuria or hematuria Musculoskeletal: Denies back pain or joint pain Integument: Denies rash or skin lesions Neurologic: Denies headache, focal weakness or sensory changes Complete systems were reviewed and found to be within normal limits, except as documented in this note. Allergies: Allergies: Allergies Coded Allergies Type Severity Reaction Last Updated Verified No Known Drug Allergies 06/07/20 No Physical Exam: PE: Constitutional: Well developed, well nourished, no acute distress, non-toxic appearance HENT: Normocephalic, atraumatic, controlled epistaxis with pressure Eyes: PERRL, EOMI, conjunctiva normal, no discharge Neck: Normal range of motion, no tenderness, supple Lungs & Thorax: Bilateral breath sounds clear to auscultation, no wheezing Abdomen: Soft, no tenderness Skin: Warm, dry, no erythema, no rash Back: No tenderness, no CVA tenderness Extremities: No tenderness, ROM intact, no edema Neurologic: Alert and oriented X 3, normal motor function, normal sensory function, no focal deficits noted Psychologic: Affect normal, judgment normal Course & Med Decision Making: Course & Med Decision Making Pertinent Labs and Imaging studies reviewed. (See chart for details) Patient is a 64-year-old male presenting with recurrent epistaxis. Patient was seen by me early Saturday for same presentation. Epistaxis is under control with local pressure. Of note patient blood pressure is 170/90s while in the ED. Patient was counseled on the importance of following up with ENT for which he has an appointment for. Patient also was counseled on the importance of following up with his primary care physician for hypertension control and optimization. Patient stable for discharge with outpatient follow-up with PCP. Discussed findings and plan with patient, who acknowledges understanding and agreement. Dragon Disclaimer: Dragon Disclaimer: This electronic medical record was generated, in whole or in part, using a voice recognition dictation system. Departure Departure Impression: Primary Impression: Epistaxis Disposition: 01 HOME, SELF-CARE Condition: IMPROVED Referrals: ADWOA POLANCO MD (PCP) ROSS BA MD Patient Instructions: Nosebleed, Eumd-sn-Ihws Justicifation of Admission Dx: Justifications for Admission: Justification of Admission Dx: Yes AMANDA JEAN DO Jun 10, 2020 16:45
[2020-06-10] MEDS ORDERED: OXYMETAZOLINE 0.05% NASAL SPRAY 30ML BOTTLE. NS ONE (18:00)
[2020-06-10 18:37] VITALS: BP 154/88
[2020-07-01] MEDS ORDERED: LIPITOR80 MG PO (08:56)
[2020-07-01] MEDS ORDERED: CLOP75TA PO (08:56)
[2020-07-01] MEDS ORDERED: EZET10TA20 PO (08:56)
== END 2020-06-10 18:40 | disposition home or self-care (01) ==
LOC: ER 16:21
DX: R04.0 Epistaxis (principal); R55 Syncope and collapse; I10 Essential (primary) hypertension; Z90.89 Acquired absence of other organs
CPT/HCPCS: 99285

== ENCOUNTER → 2020-07-01 | Outpatient (CLI) | payer MEDICARE, OTHER ==
[2020-06-10 18:37] VITALS: BP 154/88
[~2020-07-01] MED LIST changes: +CLOP75TA PO; +EZET10TA20 PO; +LIPITOR80 MG PO; +REGADENOSON 0.4 MG/5 ML DISP.SYRIN. IV ONE
--- NOTE | 2020-07-01 15:37 | RAD ---
MR#: [id number] Date of Study: 07/01/2020 Ordering Physician: GABY VALLE, Referring Physician: LONG BULLOCK Tech: RT Tre (R) (N) APPROVED REPORT Test Type: Pharmacological Stress Nurse/Tech: Bouchra Valencia R.N. Test Indications: afib Cardiac History: htn, high chol Medications: see attached list Medical History: see ehr Resting ECG: SR Resting Heart Rate: 62 bpm Resting Blood Pressure: 128/67mmHg Pretest Chest Pain: No chest pain Nurse/Tech Notes lungs cta, heart tones regular Consent: The procedure was explained to the patient in lay terms. Informed consent was witnessed. Asher eout was entered into [employer]. History and Stress Test performed by JESSICA Vasquez, MARY (R) (N) Pharm. Details Pharmacologic stress testing was performed using 0.4mg per 5ml of regadenoson given intravenously ove r 7-10 seconds. Stress Symptoms No chest pain or symptoms.Dyspnea POST EXERCISE Reason for Termination: Infusion complete Target HR: No Max HR: 87 bpm Max Blood Pressure: 148/62mmHg Chest Pain: No. Arrhythmia: Yes. PACs noted throughout, unifocal PVCs at end of recovery INTERPRETATION Stress EKG Conclusion: The resting EKG shows a sinus rhythm with mild nonspecific ST-T wave changes. The stress EKG shows no significant changes from baseline. No EKG evidence of stress-induced ischemia. Imaging Protocol IMAGE PROTOCOL: Rest Tc-99m/stress Tc-99m 1 day Rest: Stress: Viability: Radiopharm.Tc99m IhhkyepapMk33c Sestamibi Dose10.5mCi 33mCi Duration 13min. 13min. Img Date 07/01/2020 07/01/2020 Inj-Img Ozmj14agi. 60min. Rest Admin Site:IV - Right AntecubitalAdministrator:RT Tre (R)(N) Stress Admin Site: IV - Right AntecubitalAdministrator: JESSICA Vasquez, MARY (R)(N) STRESS DATA End Diast. Vol.130.0mlLVEDV index BSA56.0ml End Syst. Vol.45.0mlLVESV index BSA19.0ml Myocardial Kggt436.0gEject. Wqqksuro87.0% Stress Scores Regional WT1.00Summed WT8.00 Regional WM0.00Summed WM2.00 LV Perfusion The stress scans showed no significant defects. The rest scans showed no significant defects. Nuclear imaging shows no reversible ischemia or infarct. Wall Motion Left ventricular systolic function is normal with no regional wall motion abnormalities and an ejecti on fraction of 62%. LV Perf. Quant 17 Seg. SSS0.00 17 Seg. SRS0.00 17 Seg. SDS0.00 Stress Defect Extent (% LAD)0.00Rest Defect Extent (% LAD)0.00Rev. Defect Extent (% LAD)0.00 Stress Defect Extent (% LCX) 0.00Rest Defect Extent (% LCX)0.00Rev. Defect Extent (% LCX)0.00 Stress Defect Extent (% RCA)0.00Rest Defect Extent (% RCA)0.00Rev. Defect Extent (% RCA)0.00 Stress Defect Extent (% KATERINA)0.00Rest Defect Extent (% KATERINA)0.00Rev. Defect Extent (% KATERINA)0.00 Conclusion 1. No EKG evidence of stress-induced ischemia. 2. Nuclear imaging shows no reversible ischemia or infarct. 3. Intact LV systolic function with no regional wall motion abnormalities and an ejection fraction of 62%. 4. Low risk Lexiscan nuclear stress test. Signed by : David Becerril MD Electronically Approved : 07/01/2020 15:37:30
== END | disposition home or self-care (01) ==
LOC: NM 08:11
PROVIDERS: ATTEND Internal Medicine Cardiovascular Disease
DX: I48.0 Paroxysmal atrial fibrillation (principal); I10 Essential (primary) hypertension
CPT/HCPCS: 78452; 93017; A9500; J2785

== ENCOUNTER → 2021-10-11 | Outpatient (CLI) | payer BC, MEDICARE, OTHER ==
[~2021-10-11] MED LIST changes: +AMLO-186 PO; -AMLO5TAB10 PO; -LISI-334 PO; +LISI20TA18 PO; -REGADENOSON 0.4 MG/5 ML DISP.SYRIN. IV ONE
--- NOTE | 2021-10-11 13:15 | CARD ---
MR#: [id number] Date of Study: 10/11/2021 Ordering Physician: GABY RAYGOZA, Referring Physician: GABY RAYGOZA, Tech: Salome Hart, [facility] APPROVED REPORT EXAM: Two-dimensional and M-mode echocardiogram with Doppler and color Doppler. Other Information Quality : AverageHR: 69bpm INDICATION Atrial Fibrillation RISK FACTORS Hypertension Hyperlipidemia 2D DIMENSIONS RVDd3.9 (2.9-3.5cm)Left Atrium(2D)4.2 (1.6-4.0cm) IVSd1.3 (0.7-1.1cm)Aortic Root(2D)3.2 (2.0-3.7cm) LVDd4.9 (3.9-5.9cm)LVOT Diameter2.1 (1.8-2.4cm) PWd1.2 (0.7-1.1cm)LVDs2.7 (2.5-4.0cm) FS (%) 45.2 %SV85.9 ml LVEF(%)76.4 (>50%) Aortic Valve AoV Peak Andrea.126.6cm/sAoV VTI25.6cm AO Peak GR.6.4mmHgLVOT Peak Andrea.118.3cm/s LVOT VTI 24.00cmAO Mean GR.4mmHg EVANGELISTA (VMAX)2.90zn1OGQ (VTI)3.27cm2 Mitral Valve MV E Telljjiw21.1cm/sMV DECEL XXGT404yk MV A Vmcqphwd04.1cm/sMV E Mean Gr.1mmHg MV XVO47luC/A Ratio0.7 MVA (PHT)2.91cm2 TDI E/Lateral E'6.0E/Medial E'5.7 Pulmonary Valve PV Peak Ucmvwfuo653.2cm/sPV Peak Grad.4mmHg Tricuspid Valve TR P. Obgxbgsh788gd/sRAP ZSSDKSYF6fxYw TR Peak Gr.20leLjFEBN78vtUg Pulmonary Vein S1 Dvobffce28.1cm/sD2 Yxdvvbxh00.6cm/s PVa lydmhqtu000bbua LEFT VENTRICLE The left ventricle is normal size. There is mild to moderate concentric left ventricular hypertrophy. The left ventricular systolic function is normal. The Ejection Fraction is 55-60%. There is normal L V segmental wall motion. Transmitral Doppler flow pattern is Grade I-abnormal relaxation pattern. RIGHT VENTRICLE The right ventricle is normal size. There is normal right ventricular wall thickness. The right ventr icular systolic function is normal. ATRIA The left atrium size is normal. The right atrium size is normal. The interatrial septum is intact wit h no evidence for an atrial septal defect or patent foramen ovale as noted on 2-D or Doppler imaging. AORTIC VALVE The aortic valve is normal in structure and function. Doppler and Color Flow revealed trace aortic re gurgitation. There is no significant aortic valvular stenosis. Calculated aortic valve area is 3.52 c m2 with maximum pressure gradient of 8 mmHg and mean pressure gradient of 4 mmHg. MITRAL VALVE The mitral valve is normal in structure and function. There is no evidence of mitral valve prolapse. There is no mitral valve stenosis. Doppler and Color Flow revealed no mitral valve regurgitation note d. TRICUSPID VALVE The tricuspid valve is normal in structure and function. Doppler and Color Flow revealed trace tricus pid regurgitation with an estimated PAP of 39 mmHg. There is no tricuspid valve stenosis. PULMONIC VALVE The pulmonic valve is not well visualized. Doppler and Color Flow revealed trace pulmonic valvular re gurgitation. GREAT VESSELS The aortic root is normal in size. The ascending aorta is Mildly dilated measuring 3.8 cm. The IVC is normal in size and collapses >50% with inspiration. PERICARDIAL EFFUSION There is no evidence of significant pericardial effusion. Critical Notification Critical Value: No <Conclusion> The left ventricular systolic function is normal. The Ejection Fraction is 55-60%. There is normal LV segmental wall motion. Transmitral Doppler flow pattern is Grade I-abnormal relaxation pattern. Trace tricuspid regurgitation with an estimated PAP of 39 mmHg. There is no evidence of significant pericardial effusion. Signed by : Gaby Raygoza, Electronically Approved : 10/11/2021 13:14:45
== END ==
LOC: ECHO 09:44
PROVIDERS: ATTEND Internal Medicine Cardiovascular Disease
DX: I51.7 Cardiomegaly (principal); I77.819 Aortic ectasia, unspecified site; I48.0 Paroxysmal atrial fibrillation
CPT/HCPCS: 93306

== ENCOUNTER → 2021-11-03 | Outpatient (CLI) | payer BC ==
--- NOTE | 2021-11-03 11:47 | CARD ---
MR#: [id number] Date of Study: 11/03/2021 Ordering Physician: GABY RAYGOZA, Referring Physician: GABY RAYGOZA, Tech: APPROVED REPORT PROCEDURE: Successful implantation of Medtronic reveal Linq loop recorder INDICATIONS: Evaluate atrial fibrillation burden to guide antiarrhythmic and anticoagulation therapy PROCEDURE DETAILS: An informed consent was obtained from patient. Patient was brought to the procedure suite and left c hest and shoulder were prepped and draped in the usual fashion. 20 mL of 2% lidocaine was infiltrate d into the skin and subcutaneous tissues for local anesthesia. An incision was made in the left thir d intercostal space 1 inch from midsternal line and using the introducer and deploy provided with the kit, a Medtronic reveal Linq loop recorder serial number [id number] was placed in the subcutaneous tissue. The incision was closed using Steri-Strips. Hemostasis was secured. Patient tolerated the procedure well. There were no immediate complications. CONCLUSION: Successful implantation of Medtronic reveal Linq loop recorder to assess AF burden and guide antiarrh ythmic/anticoagulation therapy Signed by : Gaby Raygoza, Electronically Approved : 11/03/2021 11:47:20
== END | disposition home or self-care (01) ==
LOC: LINQ 10:50
PROVIDERS: ATTEND Internal Medicine Cardiovascular Disease
DX: I48.91 Unspecified atrial fibrillation (principal); I10 Essential (primary) hypertension; Z79.82 Long term (current) use of aspirin; Z79.899 Other long term (current) drug therapy; Z98.890 Other specified postprocedural states; Z79.01 Long term (current) use of anticoagulants; Z72.89 Other problems related to lifestyle
CPT/HCPCS: 33285; C1764